=== PATIENT | female | born 1990 | race Caucasian/White ===

== ENCOUNTER 2021-11-09 04:48 | Emergency (ER) | payer OTHER ==
[~2021-11-09] VITALS: Ht 160 cm; Wt 106.1 kg
[2021-11-09] MEDS ORDERED: ZYRTEC10 M5 PO (04:59)
[2021-11-09] MEDS ORDERED: VENLAFAXINE HC150 MG PO (04:59)
[2021-11-09] MEDS ORDERED: ELIQUIS5 MG PO (06:59)
[2021-11-09 07:14] VITALS: BP 125/86
== END 2021-11-09 07:00 | disposition home or self-care (01) ==
LOC: ER 04:48
DX: I82.462 Acute embolism and thrombosis of left calf muscular vein (principal); F41.9 Anxiety disorder, unspecified; F32.9 Major depressive disorder, single episode, unspecified; F12.90 Cannabis use, unspecified, uncomplicated; Z79.899 Other long term (current) drug therapy